=== PATIENT | female | born 1950 | race Caucasian/White ===

== ENCOUNTER 2021-02-14 07:30 | Emergency (ER) | payer MEDICARE ==
[~2021-02-14] VITALS: Ht 160 cm; Wt 94.8 kg
--- NOTE | 2021-02-14 07:45 | NUR ---
Patient placed in ER bed 10. Awaiting MD allan.
--- NOTE | 2021-02-14 07:54 | NUR ---
Seen by Dr Fox, awaiting further orders.
[2021-02-14] MEDS ORDERED: CYCLOBENZAPRINE 10 MG TABLET ONE (07:59)
[2021-02-14] MEDS ORDERED: KETOROLAC TROMETHAMINE INJ 30 MG/ML VIAL ONE (07:59)
[2021-02-14] MEDS: CYCLOBENZAPRINE 10 MG TABLET PO ONE (08:06)
[2021-02-14] MEDS: KETOROLAC TROMETHAMINE INJ 30 MG/ML VIAL IM ONE (08:07)
[2021-02-14] MEDS ORDERED: CYCL5TAB PO (08:29)
[2021-02-14] MEDS ORDERED: IBUP-1957 PO (08:29)
--- NOTE | 2021-02-14 08:55 | NUR ---
Patient discharged to home in stable condition. Written and verbal after care instructions given. Patient verbalizes understanding of instruction.
[2021-02-14 08:56] VITALS: BP 138/90
== END 2021-02-14 08:57 | disposition home or self-care (01) ==
LOC: ER 07:33
DX: M25.552 Pain in left hip (principal); M19.90 Unspecified osteoarthritis, unspecified site; Z98.890 Other specified postprocedural states; Z79.899 Other long term (current) drug therapy
CPT/HCPCS: 73503; 96372; 99283; J1885; 73502